=== PATIENT | female | born 1945 | race Caucasian/White ===

== ENCOUNTER → 2018-01-10 | Outpatient (CLI) | payer MEDICARE, OTHER ==
[~2018-01-10] MED LIST: DICL75TA PO; DULO1CAP2 PO; GABA600T PO; LEVO25TA4 PO; METF500T PO; MULT-65 PO; RA BTAB PO; SITA1TAB2 PO; VITA2000 PO
[2018-01-10 10:05] LABS: PROTHROMBIN TIME - PATIENT 10.3 SEC (9.8-11.6)
[2018-01-10 10:06] LABS: AUTOMATED NEUTROPHIL # 5.4 TH/MM3 (1.8-7.7); BASOPHIL # 0.1 TH/MM3 (0-0.2); EOSINOPHIL # 0.3 TH/MM3 (0-0.4); EOSINOPHIL % 3.5 % (0.0-4.0); HEMATOCRIT 42.5 % (35.0-46.0); LYMPH % 17.6 % (9.0-44.0); LYMPHOCYTE # 1.3 TH/MM3 (1.0-4.8); MEAN CELL VOLUME 88.9 FL (80.0-100.0); MEAN CORPUSCULAR HEMOGLOBIN 29.3 PG (27.0-34.0); MEAN CORPUSCULAR HGB CONC 32.9 % (32.0-36.0); MEAN PLATELET VOLUME 8.2 FL (7.0-11.0); MONO % 6.8 % (0.0-8.0); MONOCYTE # 0.5 TH/MM3 (0-0.9); NEUT % 71.1 % (16.0-70.0); PLATELET COUNT 353 TH/MM3 (150-450); RED BLOOD COUNT 4.78 MIL/MM3 (4.00-5.30); RED CELL DISTRIBUTION WIDTH 13.9 % (11.6-17.2); WHITE BLOOD COUNT 7.6 TH/MM3 (4.0-11.0)
--- NOTE | 2018-01-10 10:19 | RADRPT ---
EXAM DATE: 01/10/2018 10:13 AM EDT AGE/SEX: 72 years / Female INDICATIONS: Evaluate for pneumonia, pneumothorax or communicable disease. Pre op hip replacement. CLINICAL DATA: This is the patient's initial encounter. Patient reports that signs and symptoms have been present for 1 day and indicates a pain score of 0/10. MEDICAL/SURGICAL HISTORY: Diabetes mellitus type II. None. COMPARISON: No prior exams available for comparison. FINDINGS: PA and lateral views of the chest demonstrate the lungs to be symmetrically aerated without evidence of mass, infiltrate or effusion. The cardiomediastinal contours are unremarkable. Osseous structures are intact. CONCLUSION: Negative examination. Electronically signed by: Josr Nazario MD 01/10/2018 10:17 AM EDT
[2018-01-10 10:20] LABS: ALBUMIN 4.2 GM/DL (3.4-5.0); AST (GOT) 21 U/L (15-37); BICARBONATE 24.4 MEQ/L (21.0-32.0); BLOOD UREA NITROGEN 24 MG/DL (7-18); CALCIUM 9.8 MG/DL (8.5-10.1); CHLORIDE 105 MEQ/L (98-107); GLOMERULAR FILTRATION RATE 44 ML/MIN (>89); GLUCOSE,FASTING 120 MG/DL (74-99); SODIUM (NA) 140 MEQ/L (136-145)
[2018-01-10 10:21] LABS: ALT (GPT) 48 U/L (10-53)
[2018-01-10 10:23] LABS: ALKALINE PHOSPHATASE 94 U/L (45-117); TOTAL BILIRUBIN ADULT 0.4 MG/DL (0.2-1.0); TOTAL PROTEIN 7.5 GM/DL (6.4-8.2)
[2018-01-10 10:26] LABS: BILIRUBIN, URINE NEG (NEG); BLOOD, URINE NEG (NEG); GLUCOSE,URINE NEG (NEG); HYALINE CAST, URINE 10 /lpf (RARE); KETONE, URINE NEG (NEG); MUCUS URINE FEW /lpf (OCC); NITRITE,URINE NEG (NEG); PH, URINE 5.5 (5.0-8.5); RENAL EPITHELIAL CELLS <1 /hpf; SQUAMOUS EPITHELIAL CELL URINE 2 /hpf (0-5); TRANSITIONAL EPI CELLS, URINE 3 /hpf; URINE COLOR YELLOW (YELLW/STRAW); URINE LEUKOCYTE ESTERASE LARGE (NEG); WHITE BLOOD CELL CLUMPS OCC
[2018-01-10 10:27] LABS: BACTERIA, URINE OCC /hpf
[2018-01-10 10:40] LABS: WESTERGREN SEDIMENTATION RATE 9 mm/hr (0-30)
--- NOTE | 2018-01-10 15:23 | EKG ---
Date Performed: 01/10/2018 Time Performed: 09:23:12 PTAGE: 72 years EKG: Sinus rhythm LOW QRS VOLTAGE IN PRECORDIAL LEADS BORDERLINE ECG NO PREVIOUS TRACING DOCTOR: Carroll Wright Interpretating Date/Time 01/10/2018 15:22:14
== END ==
LOC: CPRE 09:52
PROVIDERS: ATTEND Orthopaedic Surgery Sports Medicine
DX: Z01.810 Encounter for preprocedural cardiovascular examination (principal); Z01.811 Encounter for preprocedural respiratory examination; Z01.812 Encounter for preprocedural laboratory examination; Z01.818 Encounter for other preprocedural examination; M16.12 Unilateral primary osteoarthritis, left hip; M25.50 Pain in unspecified joint; R82.99 Other abnormal findings in urine; R94.31 Abnormal electrocardiogram [ECG] [EKG]
CPT/HCPCS: 36415; 71046; 80053; 81001; 85025; 85610; 85652; 85730; 87086; 93005

== ENCOUNTER 2018-01-27 05:19 | Inpatient (IN) | payer MEDICARE, OTHER ==
[~2018-01-27] VITALS: Ht 170.2 cm; Wt 89.0 kg
[2018-01-27] MEDS ORDERED: METOPROLOL TARTRATE 25 MG TAB PO PRN (06:00)
[2018-01-27] MEDS ORDERED: CHLORHEXIDINE GLUCONATE 4% SOLN 120 ML BTL TOPICAL SCH (06:00)
[2018-01-27] MEDS ORDERED: CHLORHEXIDINE GLUCONATE 2 % 1 PACK (2 CLOTHS) TOPICAL PRN (06:00)
[2018-01-27] MEDS ORDERED: POVIDONE IODINE 7.5% SCRUB 118 ML BOTTLE TOPICAL SCH (06:00)
[2018-01-27] MEDS ORDERED: ceFAZolin 2 GM PREMIX 50 ML IV SCH (06:00)
[2018-01-27] MEDS ORDERED: SODIUM CHLORID 0.9% 500 ML IV PRN (06:00)
[2018-01-27] MEDS ORDERED: TRANEXAMIC ACID IV SCH (06:00)
[2018-01-27] MEDS ORDERED: VANCOMYCIN 1 GM/200 ML INJ 200 ML IV SCH (06:00)
[2018-01-27] MEDS ORDERED: POVIDONE IODINE 5% (ANTISEPSIS KIT) 4 APPLICATIONS EACH NARE PRN (06:00)
[2018-01-27] MEDS ORDERED: EXPAREL PERI-ARTICULAR INJECTION (TOTAL VOL. 60 ML) P-ARTICULR SCH ×2 (06:00)
[2018-01-27] MEDS ORDERED: TRANEXAMIC PERI-ARTICULAR 3,000 MG/NS 100 ML P-ARTICULR SCH ×2 (06:00)
[2018-01-27] MEDS ORDERED: DEXAMETHASONE SOD PHOS 20 MG/5 ML VIAL IV PRN (06:00)
[2018-01-27] MEDS ORDERED: SODIUM CHLORIDE 0.9% IV SCH (06:00)
[2018-01-27] MEDS ORDERED: LACTATED RINGER'S 1000 ML IV PRN (06:00)
[2018-01-27] MEDS ORDERED: GENTAMICIN SULFATE 80 MG/2 ML VIAL ONE (06:15)
[2018-01-27] MEDS ORDERED: FAMOTIDINE 20 MG/2 ML VIAL ONE (06:20)
[2018-01-27] MEDS ORDERED: MIDAZOLAM HCL 2 MG/2 ML VIAL ONE (06:20)
[2018-01-27] MEDS ORDERED: ACETAMINOPHEN 1000 MG/100 ML 100 ML IV ONE (06:20)
[2018-01-27] MEDS ORDERED: HYDR-3288 PO (06:36)
[2018-01-27] MEDS ORDERED: ASPI81CH6 CHEW (06:36)
[2018-01-27] MEDS ORDERED: Post-op Orders (for Pharmacy) XX ONE (06:45)
[2018-01-27] MEDS ORDERED: NALOXONE HCL 0.4 MG/ML AMP IV PUSH PRN (06:45)
[2018-01-27] MEDS ORDERED: ONDANSETRON HCL 4 MG/2 ML VIAL IVP PRN (06:45)
[2018-01-27] MEDS ORDERED: diphenhydrAMINE HCL 50 MG/ML VIAL IV PUSH PRN (06:45)
[2018-01-27] MEDS ORDERED: ZOLPIDEM TARTRATE 5 MG TAB PO PRN (06:45)
[2018-01-27] MEDS ORDERED: MORPHINE SULFATE 4 MG/ML INJ IV PUSH PRN (06:45)
[2018-01-27] MEDS ORDERED: TRANEXAMIC ACID INJ 1,000 MG/10 ML AMP ONE (06:49)
[2018-01-27] MEDS ORDERED: *morphine SULFATE 4 MG/ML PERIprocedure ONLY ONE ×3 (08:54→09:08)
[2018-01-27] MEDS: LEVOTHYROXINE SODIUM 25 MCG TAB PO SCH (09:00)
[2018-01-27] MEDS: DULoxetine HCl DR 30 MG CAP PO SCH (09:00)
[2018-01-27] MEDS: GABAPENTIN 300 MG CAP PO SCH ×3 (09:00→18:05)
[2018-01-27] MEDS: SODIUM CHLOR 0.9% 1000 ML INJ 1,000 ML IV SCH ×2 (09:01→16:27)
--- NOTE | 2018-01-27 09:02 | MP ---
cc: Go Ochoa MD DATE OF OPERATION: 01/27/2018 PREOPERATIVE DIAGNOSIS: Left hip osteoarthritis. POSTOPERATIVE DIAGNOSIS: Left hip osteoarthritis. PROCEDURE PERFORMED: Left total hip arthroplasty. SURGEON: Go Ochoa MD INTERNAL CONTROLS MANAGER: STARLA Salomon ANESTHESIA: General. ESTIMATED BLOOD LOSS: 200 mL. COMPLICATIONS: None. IMPLANTS USED: DePuy Corail size 13 press-fit standard offset femoral stem, size 52 solid Willernie Gription cup, 36 mm ceramic head, +1.5 neck. JUSTIFICATION: This patient is a 72-year-old female with history of severe osteoarthritis involving the left hip. She has severe disabling pain with standing, walking, ambulation and weight-bearing activities, and severe pain at rest. She has failed greater than 3 months of nonoperative conservative treatment to include medication therapy, injections, ambulatory assistive aids, home exercise program, activity modification. The patient is not overweight. X-ray of the left hip reveal severe osteoarthritis with joint space narrowing, subchondral sclerosis, subchondral cyst, osteophyte formation with subluxation. The patient was counseled as to the risks, benefits and alternatives to a total hip arthroplasty. The risks were discussed, which include, but are not limited to anesthesia, bleeding, infection, damage to nerves and blood vessels, pain, stiffness, fracture, dislocation, leg length discrepancy, blood clots, pulmonary embolism, even . The patient's pain is severe. She favored the benefits over the risks, she did wish to proceed with surgery. PROCEDURE IN DETAIL: Written consent was obtained. The patient was identified by name, taken to the operating room, placed supine on the operating table. General anesthesia was administered to the patient, as well as 2 grams of IV Ancef and 1 gram of IV vancomycin. I put the patient on the [place] table. The left and right feet were placed in the padded traction boots. All bony prominences and pressure points were well padded. The left hip and left lower extremity prepped and draped using isopropyl alcohol, Hibiclens solution and ChloraPrep solution. After a timeout was performed, a longitudinal incision was made over the anterolateral aspect of the left hip. The fascial layer was incised. Dissection was carried over the tensor fascia linda, beneath the rectus femoris to allow exposure of the anterior hip capsule. A capsulotomy incision was performed. An oscillating saw was used to perform a femoral neck cut. The osteoarthritic femoral head and neck component was removed. A 10 blade scalpel was used to excise the labrum. Sequential reaming began at size 43 and was carried through to a size 52. Subsequently, a solid Willernie 52 cup was then implanted in approximately 45 degrees of abduction and 10 degrees of anteversion. There was good purchase and fixation after insertion of the cup. A screw hole eliminator was placed, followed by the neutral liner. The liner was impacted in place and tested for stability. Attention was turned to the femur where the leg was externally rotated, extended and abducted. The capsule was released off the undersurface of the greater trochanter to allow for elevation and lateralization of the femur. A box cutting osteotome was used to gain entrance into the intramedullary canal of femur. This was followed by canal finder and sequential broaching up to size 13. A calcar planer was used to plane the calcar. Trial head and neck combinations were evaluated and final components implanted. With the current components, the leg achieve external rotation to 70 degrees and extension all the way down to the ground without evidence of anterior instability or impingement. Fluoroscopic imaging showed appropriate implantation of components. The soft tissue tension felt appropriate. surgical wound was thoroughly irrigated with sterile saline, pulse lavage antibiotic impregnated solution. The fascial layer was closed with #1 Vicryl suture, subcutaneous layer with 2-0 Vicryl suture. Skin was closed with Dermabond. Sterile dressing applied. The patient tolerated the procedure with no intraoperative complications noted. Alexandre Real PA-C, presence during the entire procedure to include patient positioning and the procedure itself. The medical necessity of a physician ward assistant was indicated in this case due to the complexity of the procedure. He assisted with appropriate manipulation of the leg and also retraction of muscle, tendon, bone, neurovascular structures. He assisted with preparation of bone and also implantation of the prosthetic replacement. Go Ochoa MD JWTamar/LAURA , 08:30 AM , 09:00 AM
[2018-01-27] MEDS ORDERED: DO NOT ADM ANY ANTICOAGULANT DRUGS PRN (09:15)
[2018-01-27] MEDS ORDERED: HYDROmorphone HCL PF 2 MG/ML VIAL ONE (09:16)
[2018-01-27] MEDS: metFORMIN HCL 500 MG TAB PO SCH ×3 (09:30→18:05)
--- NOTE | 2018-01-27 09:54 | RADRPT ---
EXAM DATE: 01/27/2018 9:48 AM EDT AGE/SEX: 72 years / Female INDICATIONS: Post op left hip. CLINICAL DATA: This is the patient's initial encounter. Patient reports that signs and symptoms have been present for 1 day and indicates a pain score of Nonresponsive. MEDICAL/SURGICAL HISTORY: None. None. COMPARISON: No prior exams available for comparison. FINDINGS: There is a left hip arthroplasty in place. Femoral component is well positioned. There is grossly karina tomic alignment. Osseous structures are intact without acute bony fracture. Degenerative changes are noted about the right hip. Postsurgical soft tissue changes are noted in the left hip. CONCLUSION: 1. Well-positioned left hip arthroplasty in grossly anatomic alignment. Electronically signed by: Trever Bravo MD 01/27/2018 9:53 AM EDT
[2018-01-27] MEDS ORDERED: LACTATED RINGER'S 1000 ML INJ 1,000 ML IV ONE (12:00)
[2018-01-27] MEDS ORDERED: ePHEDrine/NS 25 MG/5 ML SYRINGE IV ONE (12:00)
[2018-01-27] MEDS ORDERED: ONDANSETRON HCL 4 MG/2 ML VIAL IV PUSH ONE (12:00)
[2018-01-27] MEDS ORDERED: LIDOCAINE HCL 1% PF 5 ML SYRINGE OTHER ONE (12:00)
[2018-01-27] MEDS ORDERED: GLYCOPYRROLATE 1 MG/5 ML SYRINGE IV PUSH ONE (12:00)
[2018-01-27] MEDS ORDERED: ROCURONIUM INJ 50 MG/5 ML SYRINGE IV PUSH ONE (12:00)
[2018-01-27] MEDS ORDERED: PROPOFOL 200 MG/20 ML AMP IV ONE (12:00)
[2018-01-27] MEDS ORDERED: NEOSTIGMINE 5 MG/5 ML SYRINGE IV PUSH ONE (12:00)
--- NOTE | 2018-01-27 12:29 | RADRPT ---
EXAM DATE: 01/27/2018 11:17 AM EDT AGE/SEX: 72 years / Female INDICATIONS: Left total hip replacement. CLINICAL DATA: This is the patient's initial encounter. Patient reports that signs and symptoms have been present for 1 day and indicates a pain score of Nonresponsive. MEDICAL/SURGICAL HISTORY: Non-responsive. Non-responsive. COMPARISON: No prior exams available for comparison. FINDINGS: Postoperative left total hip replacement. 3 views obtained and 8. On the AP projection revealed pratibha l alignment. CONCLUSION: No lateral projection but normal alignment on AP projection. Electronically signed by: Jamal Field MD 01/27/2018 12:28 PM EDT
[2018-01-27 14:00] VITALS: BP 169/85; PULSE 115; RESP 17; TEMP 97.2; O2SAT 95
[2018-01-27] MEDS: ACETAMINOPHEN/HYDROcodone 325 MG/7.5 MG TAB PO PRN ×3 (14:18→21:48)
[2018-01-27] MEDS ORDERED: GLUCAGON 1 MG/ML VIAL OTHER PRN (14:45)
[2018-01-27] MEDS ORDERED: cloNIDine HCL 0.1 MG TAB PO PRN (14:45)
[2018-01-27] MEDS ORDERED: DEXTROSE 50% IN WATER 50 ML VIAL(D50) IV PUSH PRN (14:45)
--- NOTE | 2018-01-27 14:55 | PD.CONS ---
[facility] By DR RAMSEY VARGAS Reason for Consult MEDICAL MANAGEMENT Primary Care Physician Chapincito Cruz MD Diagnoses: (1) Diabetes (2) Nausea after anesthesia (3) Hypothyroidism (4) Depression (5) Peripheral neuropathy History of Present Illness Patient is a 72-year-old female who underwent left total hip arthroplasty due to severe osteoarthritis of her left hip. She has failed multiple medical modalities prior to coming to the hospital, And therefore has undergone surgery. Patient has a past medical history significant for diabetes and diabetic neuropathy as well as hypothyroidism and depression and chronic pain. We have been asked to help regarding medical management We will get a.m. labs and will follow throughout the admission We will make sure he is Accu-Cheks before meals and at bedtime and sliding scale coverage as well as medications for any breakthrough hypertension and nausea as needed Review of Systems Constitutional: DENIES: Diaphoretic episodes, Fatigue, Fever, Weight gain, Weight loss, Chills, Dizziness, Change in appetite, Night Sweats Endocrine: DENIES: Abnorml menstrual pattern, Heat/cold intolerance, Polydipsia , Polyuria, Polyphagia Eyes: DENIES: Blurred vision, Diplopia, Eye inflammation, Eye pain, Vision loss , Photosensitivity, Double Vision Ears, nose, mouth, throat: DENIES: Tinnitus, Hearing loss, Vertigo, Nasal discharge, Oral lesions, Throat pain, Hoarseness, Ear Pain, Running Nose, Epistaxis, Sinus Pain, Toothache, Odynophagia Respiratory: DENIES: Apneas, Cough, Snoring, Wheezing, Hemoptysis, Sputum production, Shortness of breath Cardiovascular: DENIES: Chest pain, Palpitations, Syncope, Dyspnea on Exertion , PND, Lower Extremity Edema, Orthopnea, Claudication Gastrointestinal: COMPLAINS OF: Nausea, Vomiting, DENIES: Abdominal pain, Black stools, Bloody stools, Constipation, Diarrhea, Difficulty Swallowing, Anorexia Genitourinary: DENIES: Abnormal vaginal bleeding, Dysmenorrhea, Dyspareunia, Sexual dysfunction, Urinary frequency, Urinary incontinence, Urgency, Hematuria , Dysuria, Nocturia Musculoskeletal: DENIES: Joint pain, Muscle aches, Stiffness, Joint Swelling, Back pain, Neck pain Integumentary: DENIES: Abnormal pigmentation, Pruritus, Rash, Nail changes, Breast masses, Breast skin changes, Nipple discharge Hematologic/lymphatic: DENIES: Bruising, Lymphadenopathy Immunologic/allergic: DENIES: Eczema, Urticaria Neurologic: COMPLAINS OF: Abnormal gait, Poor Balance, DENIES: Headache, Localized weakness, Paresthesias, Seizures, Tremor Psychiatric: DENIES: Anxiety, Confusion, Mood changes, Depression, Hallucinations, Agitation, Suicidal Ideation, Homicidal Ideation, Delusions Except as stated in HPI: all other systems reviewed are Neg Past Family Social History Allergies: Coded Allergies: tramadol (Verified Allergy, Severe, VIOLENTLY ILL, CHILLS, FEVER, VOMITING , 01/27/18) Past Medical History Hypothyroidism neuropathy bilateral feet Left hip pain history of bilateral knee pain Osteoarthritis Bilateral knee replacements Diabetes mellitus type 2 Past Surgical History Cataracts bilaterally Tonsillectomy Bilateral total knee replacements Reported Medications Reported Meds & Active Scripts Active Aspirin Low Dose (Aspirin) 81 Mg Chew 81 Mg CHEW BID 30 Days [place] (Hydrocodone-Acetaminophen) 7.5-325 mg Tab 1-2 Tab PO Q6H PRN Reported Vitamin D3 (Cholecalciferol) 2,000 Unit Cap 2,000 Units PO DAILY B Complex (Vitamin B Complex) 1 Each Tablet 1 Tab PO DAILY Multi-Vitamin Daily (Multiple Vitamin) 1 Tab Tab 1 Tab PO DAILY Levothyroxine (Levothyroxine Sodium) 25 Mcg Tab 25 Mcg PO DAILY Diclofenac Sodium DR (Diclofenac Sodium) 75 Mg Tabdr 75 Mg PO BID Duloxetine DR (Duloxetine HCl) 30 Mg Capdr 30 Mg PO DAILY Januvia (Sitagliptin Phosphate) 100 Mg Tab 100 Mg PO DAILY Gabapentin 600 Mg Tab 600 Mg PO TID Metformin (Metformin HCl) 500 Mg Tab 500 Mg PO TIDPC Active Ordered Medications Current Medications Dexamethasone Sodium Phosphate (Decadron Inj) 10 mg STOCK REPAIRER PRN IV PRE-OP IN OR HOLDING Last administered on 01/27/18at 06:20; Start 01/27/18 at 06:00; Stop 01/27/18 at 22:00 Povidone Iodine (Betadine 7.5% Scrub) 1 applic ONCE TOPICAL Last administered on 01/27/18at 06:10; Start 01/27/18 at 06:00; Stop 01/30/18 at 05:59 Chlorhexidine Gluconate (Hibiclens 4% Top Soln) 1 applic ONCE TOPICAL ; Start at 06:00; Stop 01/30/18 at 05:59 Cefazolin Sodium/ Dextrose 50 ml @ 100 mls/hr STOCK REPAIRER IV Last administered on 01/27/18at 06:25; Start 01/27/18 at 06:00; Stop 01/30/18 at 05:59 Vancomycin/Sodium Chloride 200 ml @ 200 mls/hr STOCK REPAIRER IV Last administered on 01/27/18at 06:44; Start 01/27/18 at 06:00; Stop 01/30/18 at 05:59 Tranexamic Acid 1340 mg/Sodium Chloride 113.4 ml @ 200 mls/hr ONCE IV Last administered on 01/27/18at 07:01; Start 01/27/18 at 06:00; Stop 01/27/18 at 13:00 ; Status DC Bupivacaine Liposome 20 ml/ Sodium Chloride 60 ml @ 120 mls/hr ONCE P-ARTICULR Last administered on 01/27/18at 08:20; Start 01/27/18 at 06:00; Stop 01/27/18 at 14:00; Status DC Tranexamic Acid 3000 mg/Sodium Chloride 130 ml @ 260 mls/hr ONCE P-ARTICULR Last administered on 01/27/18at 07:50; Start 01/27/18 at 06:00; Stop 01/27/18 at 14:00; Status DC Lactated Ringer's 1,000 ml @ 30 mls/hr Q24H PRN IV SEE LABEL COMMENTS Last administered on 01/27/18at 06:00; Start 01/27/18 at 06:00; Stop 01/30/18 at 05:59 Sodium Chloride 500 ml @ 30 mls/hr [id number] PRN IV SEE LABEL COMMENTS; Start at 06:00; Stop 01/30/18 at 05:59 Metoprolol Tartrate (Lopressor) 25 mg STOCK REPAIRER PRN PO SEE LABEL COMMENTS; Start 01/27/18 at 06:00; Stop 01/30/18 at 05:59 Povidone Iodine (Betadine 5% Antisepsis Kit) 1 applic STOCK REPAIRER PRN EACH NARE SEE LABEL COMMENTS Last administered on 01/27/18at 06:15; Start 01/27/18 at 06:00 ; Stop 01/30/18 at 05:59 Chlorhexidine Gluconate (Chlorhexidine 2% Cloth) 3 pack STOCK REPAIRER PRN TOPICAL SEE LABEL COMMENTS Last administered on 01/27/18at 05:40; Start 01/27/18 at 06:00 ; Stop 01/30/18 at 05:59 Gentamicin Sulfate (Gentamicin Inj) 240 mg STK-MED ONCE .ROUTE Last administered on 01/27/18at 07:31; Start 01/27/18 at 06:15; Stop 01/27/18 at 06:16 ; Status DC Acetaminophen 100 ml @ As Directed STK-MED ONCE IV ; Start 01/27/18 at 06:20; Stop 01/27/18 at 06:21; Status DC Midazolam HCl (Versed Inj) 2 mg STK-MED ONCE .ROUTE ; Start 01/27/18 at 06:20; Stop 01/27/18 at 06:21; Status DC Fentanyl Citrate (fentaNYL INJ) 300 mcg STK-MED ONCE .ROUTE ; Start 01/27/18 at 06:20; Stop 01/27/18 at 06:21; Status DC Famotidine (Pepcid Inj) 20 mg STK-MED ONCE .ROUTE ; Start 01/27/18 at 06:20; Stop 01/27/18 at 06:21; Status DC Duloxetine HCl (Cymbalta Dr) 30 mg DAILY PO ; Start 01/27/18 at 09:00 Gabapentin (Neurontin) 600 mg TID PO Last administered on 01/27/18at 14:18; Start 01/27/18 at 09:00 Levothyroxine Sodium (Synthroid) 25 mcg DAILY@0600 PO ; Start 01/27/18 at 09:00 Metformin HCl (Glucophage) 500 mg TIDPC PO Last administered on 01/27/18at 14:18 ; Start 01/27/18 at 09:30 Sitagliptin Phosphate (Januvia) 100 mg DAILY PO ; Start 01/27/18 at 09:00 Sodium Chloride 1,000 ml @ 100 mls/hr Q10H IV Last administered on 01/27/18at 09:01; Start 01/27/18 at 07:00 Cefazolin Sodium 1000 mg/Sodium Chloride 100 ml @ 200 mls/hr Q6H IV Last administered on 01/27/18at 13:00; Start 01/27/18 at 13:00; Stop 01/28/18 at 01:29 Miscellaneous Information (Misc Post-op Orders (for Pharmacy)) STAT ONCE XX ; Start 01/27/18 at 06:45; Stop 01/27/18 at 07:18; Status DC Enoxaparin Sodium (Lovenox Inj) 40 mg Q24H SQ ; Start 01/28/18 at 08:00; Stop at 08:01 Morphine Sulfate (Morphine Inj) 3 mg Q3H PRN IV PUSH Pain >7 when off VALVE LAPPER; Start 01/27/18 at 06:45 Acetaminophen/ Hydrocodone Bitart ([place] 7.5-325 Mg) 1 tab Q4H PRN PO PAIN LESS THAN 5 ON SCALE Last administered on 01/27/18at 14:18; Start 01/27/18 at 06: 45 Acetaminophen/ Hydrocodone Bitart ([place] 7.5-325 Mg) 2 tab Q4H PRN PO PAIN SCALE 5 TO 10; Start 01/27/18 at 06:45 Multivitamins/ Minerals Therapeutic (Theragran M Tab) 1 tab BID PO ; Start 01/28 at 21:00; Stop 03/29/18 at 20:59 Ondansetron HCl (Zofran Inj) 4 mg Q6H PRN IVP NAUSEA OR VOMITING Last administered on 01/27/18at 14:26; Start 01/27/18 at 06:45 Docusate Sodium (Colace) 100 mg BID PO ; Start 01/28/18 at 21:00 Zolpidem Tartrate (Ambien) 5 mg HS PRN PO SLEEP; Start 01/27/18 at 06:45 Naloxone HCl (Narcan Inj) 0.4 mg UNSCH PRN IV PUSH RESPIRATORY RATE LESS THAN 10; Start 01/27/18 at 06:45 Diphenhydramine HCl (Benadryl Inj) 25 mg Q6H PRN IV PUSH ITCHING; Start at 06:45 Tranexamic Acid (Cyklokapron Inj) 1,000 mg STK-MED ONCE .ROUTE ; Start 01/27/18 at 06:49; Stop 01/27/18 at 06:50; Status DC Morphine Sulfate (*morphine INJ PERIprocedure ONLY) 4 mg STK-MED ONCE .ROUTE Last administered on 01/27/18at 08:56; Start 01/27/18 at 08:54; Stop 01/27/18 at 08:55; Status DC Miscellaneous Information ([facility] ALL NURSING DEPARTME... UNSCH PRN .XX SEE LABEL COMMENTS; Start 01/27/18 at 09:15; Stop 01/28/18 at 09: 14 Morphine Sulfate (*morphine INJ PERIprocedure ONLY) 4 mg STK-MED ONCE .ROUTE Last administered on 01/27/18at 09:03; Start 01/27/18 at 09:01; Stop 01/27/18 at 09:02; Status DC Morphine Sulfate (*morphine INJ PERIprocedure ONLY) 4 mg STK-MED ONCE .ROUTE Last administered on 01/27/18at 09:08; Start 01/27/18 at 09:08; Stop 01/27/18 at 09:09; Status DC Hydromorphone HCl (Dilaudid Pf Inj) 2 mg STK-MED ONCE .ROUTE Last administered on 01/27/18at 09:18; Start 01/27/18 at 09:16; Stop 01/27/18 at 09:17; Status DC Family History Arthritis and possible diabetes Social History Denies any tobacco Denies any illicits Occasional alcohol Physical Exam Vital Signs Vital Signs Date Time Temp Pulse Resp B/P (MAP) Pulse Ox O2 Delivery O2 Flow Rate FiO2 01/27/18 11:00 84 14 131/61 (84) 95 Nasal Cannula 2 01/27/18 10:00 83 14 139/65 (89) 96 Nasal Cannula 2 01/27/18 09:45 70 14 126/56 (79) 95 Nasal Cannula 2 01/27/18 09:30 75 14 142/67 (92) 95 Nasal Cannula 2 01/27/18 09:15 76 19 137/64 (88) 97 Nasal Cannula 2 01/27/18 09:00 80 17 129/60 (83) 97 Nasal Cannula 2 01/27/18 08:50 Nasal Cannula 2 01/27/18 08:46 98.3 104 23 159/74 (102) 98 Simple Mask 6 01/27/18 06:09 97.9 68 18 128/63 (84) 96 Physical Exam GENERAL: This is a well-nourished, well-developed patient, in no apparent distress. SKIN: No rashes, ecchymoses or lesions. Cool and dry. HEAD: Atraumatic. Normocephalic. No temporal or scalp tenderness. EYES: Pupils equal round and reactive. Extraocular motions intact. No scleral icterus. No injection or drainage. ENT: Nose without bleeding, purulent drainage or septal hematoma. Throat without erythema, tonsillar hypertrophy or exudate. Uvula midline. Airway patent. NECK: Trachea midline. No JVD or lymphadenopathy. Supple, nontender, no meningeal signs. CARDIOVASCULAR: Regular rate and rhythm without murmurs, gallops, or rubs. S1- S2 no S3 or S4 no heave or thrill or rub or gallop RESPIRATORY: Clear to auscultation. Breath sounds equal bilaterally. No wheezes , rales, or rhonchi. GASTROINTESTINAL: Abdomen soft, non-tender, nondistended. No hepato-splenomegaly , or palpable masses. No guarding. Obese MUSCULOSKELETAL: Extremities without clubbing, cyanosis, or edema. No joint tenderness, effusion, or edema noted. No calf tenderness. Negative Homans sign bilaterally. Left hip is dressed NEUROLOGICAL: Awake and alert. Cranial nerves II through XII intact. Motor and sensory grossly within normal limits. 4 out of 5 muscle strength in all muscle groups. Normal speech. Insight and judgment is good Mood and behavior is appropriate Imaging Last Impressions Hip and Pelvis X-Ray 01/27/18 0633 Signed Impressions: CONCLUSION: 1. Well-positioned left hip arthroplasty in grossly anatomic alignment. Hip X-Ray 01/27/18 0000 Signed Impressions: CONCLUSION: No lateral projection but normal alignment on AP projection. Assessment and Plan Problem List: (1) Peripheral neuropathy ICD Code: G62.9 - Polyneuropathy, unspecified (2) Depression ICD Code: F32.9 - Major depressive disorder, single episode, unspecified (3) Nausea after anesthesia ICD Code: T88.59XA - Other complications of anesthesia, initial encounter; R11.0 - Nausea (4) Hypothyroidism ICD Code: E03.9 - Hypothyroidism, unspecified (5) Diabetes ICD Code: E11.9 - Type 2 diabetes mellitus without complications Assessment and Plan Status post left total hip arthroplasty due to severe osteoarthritis -Pain control per orthopedic -Physical therapy and Occupational Therapy Diabetes mellitus -Home medications Accu-Cheks before meals and at bedtime with sliding scale coverage Diabetic diet Nausea and vomiting continue on antiemetics as needed Hypothyroidism continue on Synthroid Diabetic neuropathy continue on home medications Depression resume home medication DVT prophylaxis per orthopedic A.m. labs Sliding scale coverage with Accu-Cheks before meals and at bedtime Discussed with patient and RN and the Code Status Full code Discussed Condition With Discussed with patient and RN and Steve Hastings DO Jan 27, 2018 14:55
--- NOTE | 2018-01-27 15:23 | HHI.DCPOC ---
Discharge Care Plan Diagnosis: (1) Primary localized osteoarthrosis, pelvic region and thigh Your Health Problems Are: Difficulty with ADL Goals to Promote Your Health * To prevent worsening of your condition and complications * To maintain your health at the optimal level Directions to Meet Your Goals Take your medications as prescribed Follow your dietary instruction Follow activity as directed Keep your appointments as scheduled Take your immunizations and boosters as scheduled If your symptoms worsen call your PCP, if no PCP go to Urgent Care Center or Emergency Room Smoking is Dangerous to Your Health. Avoid second hand smoke Call the 24-hour hour crisis hotline for domestic abuse at [facility] Jan 27, 2018 15:23
--- NOTE | 2018-01-27 15:25 | HHI.FF ---
Face to Face Verification Diagnosis: (1) Primary localized osteoarthrosis, pelvic region and thigh Physical Therapy Gait training, Safety evaluation, Transfer training, bed to chair Hip: Total hip, Protocol: Left Left LE Weight Bearing: WB as tolerated Nursing RN: 3 days/week x 2 weeks Nursing: Dressing changes Dressing Changes: Daily dressing change I have seen patient Natali Sandy on 01/27/18. My clinical findings support the need for the requested home health care services because: Limited ability to care for self High risk of falls I certify that my clinical findings support that this patient is homebound because: Post-op weakness Unsteady gait/balance [facility] Jan 27, 2018 15:25
[2018-01-27] MEDS: INSULIN ASPART SUPPLEMENTAL SCALE SQ SCH ×2 (16:27→20:56)
[2018-01-27 16:46] VITALS: BP 130/66; PULSE 82; RESP 18; TEMP 97.8; O2SAT 94
[2018-01-27 20:00] VITALS: BP 126/64; PULSE 96; RESP 17; TEMP 98; O2SAT 92
[2018-01-27 21:10] VITALS: O2SAT 94
[2018-01-28] VITALS (8 sets, daily range): BP systolic 111–116; BP diastolic 54–58; PULSE 76–93; RESP 16–18; TEMP 97.2–98.8; O2SAT 91–99
[2018-01-28] MEDS: ACETAMINOPHEN/HYDROcodone 325 MG/7.5 MG TAB PO PRN ×5 (02:33→20:37)
[2018-01-28] MEDS: SODIUM CHLOR 0.9% 1000 ML INJ 1,000 ML IV SCH ×3 (02:33→20:37)
[2018-01-28] MEDS: LEVOTHYROXINE SODIUM 25 MCG TAB PO SCH (05:32)
[2018-01-28] MEDS: INSULIN ASPART SUPPLEMENTAL SCALE SQ SCH ×4 (07:52→20:46)
[2018-01-28] MEDS: DULoxetine HCl DR 30 MG CAP PO SCH (07:57)
[2018-01-28] MEDS: GABAPENTIN 300 MG CAP PO SCH ×3 (07:57→17:09)
--- NOTE | 2018-01-28 07:57 | PD.ORT.PN ---
Subjective Post Op Day #: 1 Subjective Remarks pain tolerable. Objective Vitals Vital Signs Date Time Temp Pulse Resp B/P (MAP) Pulse Ox O2 Delivery O2 Flow Rate FiO2 01/28/18 07:35 Room Air 01/28/18 04:00 97.2 76 17 112/56 (74) 92 01/28/18 01:01 94 Room Air 01/28/18 00:00 98.8 83 17 115/56 (75) 91 01/27/18 21:10 94 21 01/27/18 20:00 98.0 96 17 126/64 (84) 92 01/27/18 16:46 97.8 82 18 130/66 (87) 94 01/27/18 14:00 97.2 115 17 169/85 (113) 95 01/27/18 13:30 97.8 93 16 152/71 (98) 97 Nasal Cannula 2 01/27/18 13:00 86 14 121/58 (79) 97 Nasal Cannula 2 01/27/18 12:00 85 14 130/58 (82) 96 Nasal Cannula 2 01/27/18 11:00 84 14 131/61 (84) 95 Nasal Cannula 2 01/27/18 10:00 83 14 139/65 (89) 96 Nasal Cannula 2 01/27/18 09:45 70 14 126/56 (79) 95 Nasal Cannula 2 01/27/18 09:30 75 14 142/67 (92) 95 Nasal Cannula 2 01/27/18 09:15 76 19 137/64 (88) 97 Nasal Cannula 2 01/27/18 09:00 80 17 129/60 (83) 97 Nasal Cannula 2 01/27/18 08:50 Nasal Cannula 2 01/27/18 08:46 98.3 104 23 159/74 (102) 98 Simple Mask 6 I/O 01/27/18 01/27/18 01/27/18 01/28/18 01/28/18 01/28/18 07:00 15:00 23:00 07:00 15:00 23:00 Intake Total 2820.4 ml 750 ml 340 ml Output Total 200 ml Balance 2620.4 ml 750 ml 340 ml Intake Oral 75 ml 650 ml 240 ml IV Total 945.4 ml 100 ml 100 ml Other 1800 ml Output Estimated Blood Loss 200 ml # Voids 0 1 5 Objective Remarks in bed, nad dressing c/d/i neg angie nvi Assessment & Plan Ortho Post Op Day #: 1 Problem List: Assessment and Plan s/p R ALEXEY wbat ok to maintain dressing unless saturated lovenox, d/c on asa 81 d/c planning home with [facility] and pt f/up dr. gore 2 weeks [facility] Jan 28, 2018 07:57
[2018-01-28] MEDS: ENOXAPARIN SODIUM 40 MG/0.4 ML SYRINGE SQ SCH (07:58)
[2018-01-28] MEDS: metFORMIN HCL 500 MG TAB PO SCH ×3 (07:58→17:09)
[2018-01-28 09:12] LABS: BASOPHIL % 0.1 % (0.0-2.0); EOSINOPHIL % 0.1 % (0.0-4.0); HEMATOCRIT 33.1 % (35.0-46.0); LYMPH % 11.6 % (9.0-44.0); LYMPHOCYTE # 1.2 TH/MM3 (1.0-4.8); MEAN CELL VOLUME 88.2 FL (80.0-100.0); MEAN CORPUSCULAR HEMOGLOBIN 29.4 PG (27.0-34.0); MEAN CORPUSCULAR HGB CONC 33.3 % (32.0-36.0); MEAN PLATELET VOLUME 7.8 FL (7.0-11.0); NEUT % 78.2 % (16.0-70.0); PLATELET COUNT 318 TH/MM3 (150-450); RED BLOOD COUNT 3.75 MIL/MM3 (4.00-5.30); RED CELL DISTRIBUTION WIDTH 14.2 % (11.6-17.2); WHITE BLOOD COUNT 10.2 TH/MM3 (4.0-11.0)
[2018-01-28 10:48] LABS: ALBUMIN 3.4 GM/DL (3.4-5.0); AST (GOT) 12 U/L (15-37); BLOOD UREA NITROGEN 14 MG/DL (7-18); CALCIUM 9.1 MG/DL (8.5-10.1); CHLORIDE 107 MEQ/L (98-107); CREATININE 0.92 MG/DL (0.50-1.00); GLOMERULAR FILTRATION RATE 60 ML/MIN (>89); GLUCOSE,RANDOM 167 MG/DL (74-106); MAGNESIUM 1.8 MG/DL (1.5-2.5); SODIUM (NA) 141 MEQ/L (136-145)
[2018-01-28 10:58] LABS: ALKALINE PHOSPHATASE 64 U/L (45-117); ALT (GPT) 27 U/L (10-53); FREE T4 1.69 NG/DL (0.76-1.46); PHOSPHORUS 2.4 MG/DL (2.5-4.9); TOTAL BILIRUBIN ADULT 0.4 MG/DL (0.2-1.0); TOTAL PROTEIN 6.4 GM/DL (6.4-8.2)
[2018-01-28 13:47] LABS: HEMOGLOBIN A1C 6.6 % (4.3-6.0)
--- NOTE | 2018-01-28 15:05 | HHI.PR ---
Subjective Remarks Follow-up visit status post left total hip arthroplasty, DM, hypothyroidism, depression, diabetic neuropathy. Patient seen and examined today. Reports she is doing well. States she attended a class. Pain is well controlled. States she continues to have diabetic neuropathy but otherwise numbness and tingling the legs is chronic. Denies pain and discomfort. Denies SOB/ dyspnea. Denies chest pain, palpitations, headaches, dizziness. Denies fevers, chills, n/v/d. Denies dysuria. Objective Vitals Vital Signs Date Time Temp Pulse Resp B/P (MAP) Pulse Ox O2 Delivery O2 Flow Rate FiO2 01/28/18 12:19 98.6 85 18 111/57 (75) 98 01/28/18 08:57 93 21 01/28/18 08:00 98.2 87 17 115/58 (77) 99 01/28/18 07:35 Room Air 01/28/18 04:00 97.2 76 17 112/56 (74) 92 01/28/18 01:01 94 Room Air 01/28/18 00:00 98.8 83 17 115/56 (75) 91 01/27/18 21:10 94 21 01/27/18 20:00 98.0 96 17 126/64 (84) 92 01/27/18 16:46 97.8 82 18 130/66 (87) 94 I/O 01/27/18 01/27/18 01/27/18 01/28/18 01/28/18 01/28/18 06:59 14:59 22:59 06:59 14:59 22:59 Intake Total 2820.4 ml 750 ml 340 ml Output Total 200 ml Balance 2620.4 ml 750 ml 340 ml Intake Oral 75 ml 650 ml 240 ml IV Total 945.4 ml 100 ml 100 ml Other 1800 ml Output Estimated Blood Loss 200 ml # Voids 0 1 5 Result Diagram: 01/28/18 0812 01/28/18 0812 Imaging Last Impressions Hip and Pelvis X-Ray 01/27/18 0633 Signed Impressions: CONCLUSION: 1. Well-positioned left hip arthroplasty in grossly anatomic alignment. Hip X-Ray 01/27/18 0000 Signed Impressions: CONCLUSION: No lateral projection but normal alignment on AP projection. Objective Remarks GENERAL: This is a well-nourished, well-developed patient, in no apparent distress. SKIN: Warm and dry HEENT: Normocephalic. Pupils equal round and reactive. Nose without bleeding. Airway patent. NECK: Trachea midline. No JVD. Supple. CARDIOVASCULAR: Regular rate and rhythm without murmurs, gallops, or rubs. RESPIRATORY: Clear to auscultation. Breath sounds equal bilaterally. No wheezes , rales, or rhonchi. GASTROINTESTINAL: Abdomen soft, non-tender, nondistended. Bowel Sounds normoactive x4. MUSCULOSKELETAL: Extremities without clubbing, cyanosis. Left hip trace edema NEUROLOGICAL: Awake and alert. Oriented to time, place, person. No focal neuro deficit. Moves all extremities. Normal speech. Procedures Status post left hip arthroplasty A/P Problem List: (1) Peripheral neuropathy ICD Code: G62.9 - Polyneuropathy, unspecified (2) Depression ICD Code: F32.9 - Major depressive disorder, single episode, unspecified (3) Nausea after anesthesia ICD Code: T88.59XA - Other complications of anesthesia, initial encounter; R11.0 - Nausea (4) Hypothyroidism ICD Code: E03.9 - Hypothyroidism, unspecified (5) Diabetes ICD Code: E11.9 - Type 2 diabetes mellitus without complications Assessment and Plan Patient is a 72-year-old female who underwent left total hip arthroplasty due to severe osteoarthritis of her left hip. Status post left total hip arthroplasty due to severe osteoarthritis by Dr. Ochoa -Orthopedic following, weightbearing status per orthopedic surgery -Pain management with bowel -Physical therapy eval and treat Diabetes mellitus type 2, no long-term insulin use, diabetic neuropathy -Continue Januvia, insulin sliding scale -Monitor Accu-Cheks Neuropathy -Diabetic neuropathy -Gabapentin Hypothyroidism -Continue Synthroid Depression -Resume home medication duloxetine DVT prop Lovenox Discharge Planning Plan to [place] home when cleared by orthopedic surgeon Mik Townsend Jan 28, 2018 15:05
[2018-01-28] MEDS: DOCUSATE SODIUM 100 MG CAP PO SCH (20:36)
[2018-01-28] MEDS: MULTIVITAMINS/MINERALS THERAPEUTIC TAB PO SCH (20:36)
[2018-01-29 01:20] VITALS: BP 131/59; PULSE 85; RESP 16; TEMP 98.5; O2SAT 95
[2018-01-29 03:48] VITALS: BP 117/58; PULSE 89; RESP 16; TEMP 98.9; O2SAT 96
[2018-01-29] MEDS: ACETAMINOPHEN/HYDROcodone 325 MG/7.5 MG TAB PO PRN (05:46)
[2018-01-29] MEDS: LEVOTHYROXINE SODIUM 25 MCG TAB PO SCH (05:46)
[2018-01-29 08:00] VITALS: BP 170/89; PULSE 94; RESP 18; TEMP 97.7; O2SAT 96
[2018-01-29] MEDS: INSULIN ASPART SUPPLEMENTAL SCALE SQ SCH (08:00)
[2018-01-29 08:40] LABS: HEMATOCRIT 30.6 % (35.0-46.0); HEMOGLOBIN 10.2 GM/DL (11.6-15.3); MEAN CELL VOLUME 87.8 FL (80.0-100.0); MEAN CORPUSCULAR HEMOGLOBIN 29.4 PG (27.0-34.0); MEAN CORPUSCULAR HGB CONC 33.4 % (32.0-36.0); MEAN PLATELET VOLUME 7.6 FL (7.0-11.0); PLATELET COUNT 251 TH/MM3 (150-450); RED BLOOD COUNT 3.48 MIL/MM3 (4.00-5.30); RED CELL DISTRIBUTION WIDTH 14.1 % (11.6-17.2); WHITE BLOOD COUNT 9.1 TH/MM3 (4.0-11.0)
[2018-01-29] MEDS: MULTIVITAMINS/MINERALS THERAPEUTIC TAB PO SCH (08:51)
[2018-01-29] MEDS: DULoxetine HCl DR 30 MG CAP PO SCH (08:51)
[2018-01-29] MEDS: GABAPENTIN 300 MG CAP PO SCH (08:51)
[2018-01-29] MEDS: metFORMIN HCL 500 MG TAB PO SCH (08:51)
[2018-01-29] MEDS: DOCUSATE SODIUM 100 MG CAP PO SCH (08:51)
[2018-01-29] MEDS: ENOXAPARIN SODIUM 40 MG/0.4 ML SYRINGE SQ SCH (08:52)
[2018-01-29] MEDS: SODIUM CHLOR 0.9% 1000 ML INJ 1,000 ML IV SCH (09:00)
--- NOTE | 2018-01-29 09:37 | HHI.PR ---
Subjective Remarks Follow-up visit status post left total hip arthroplasty, DM, hypothyroidism, depression, diabetic neuropathy. Patient seen and examined today. Patient states she is doing well. Reports she has an episode of "fainting," in the toilet last night. States she called the nurse and had help her go to the bathroom. As she was sitting on the bathroom she told the nurse that she is not feeling good all of a sudden and then she did not know what happened. States that there were 6 nurses getting her back to bed but she does not remember. So far, she was up in a chair today without any difficulty, dizziness , chest pain, palpitation, loss of consciousness she is aware of. States that he was just a one-time episode in did not know what happened. States that she never had that episode before. Objective Vitals Vital Signs Date Time Temp Pulse Resp B/P (MAP) Pulse Ox O2 Delivery O2 Flow Rate FiO2 01/29/18 07:30 Room Air 01/29/18 03:48 98.9 89 16 117/58 (77) 96 01/29/18 01:20 Nasal Cannula 2.00 01/29/18 01:20 98.5 85 16 131/59 (83) 95 01/28/18 21:27 94 01/28/18 20:50 98.4 93 16 114/54 (74) 94 01/28/18 20:30 Room Air 01/28/18 16:09 98.6 93 17 116/57 (76) 94 01/28/18 12:19 98.6 85 18 111/57 (75) 98 I/O 01/28/18 01/28/18 01/28/18 01/29/18 01/29/18 01/29/18 07:00 15:00 23:00 07:00 15:00 23:00 Intake Total 340 ml 360 ml Balance 340 ml 360 ml Intake Oral 240 ml 360 ml IV Total 100 ml # Voids 5 2 # Bowel Movements 0 Result Diagram: 01/29/18 0722 01/28/18 0812 Imaging Last Impressions Hip and Pelvis X-Ray 01/27/18 0633 Signed Impressions: CONCLUSION: 1. Well-positioned left hip arthroplasty in grossly anatomic alignment. Hip X-Ray 01/27/18 0000 Signed Impressions: CONCLUSION: No lateral projection but normal alignment on AP projection. Objective Remarks GENERAL: This is a well-nourished, well-developed patient, in no apparent distress. SKIN: Warm and dry HEENT: Normocephalic. Pupils equal round and reactive. Nose without bleeding. Airway patent. NECK: Trachea midline. No JVD. Supple. CARDIOVASCULAR: Regular rate and rhythm without murmurs, gallops, or rubs. RESPIRATORY: Clear to auscultation. Breath sounds equal bilaterally. No wheezes , rales, or rhonchi. GASTROINTESTINAL: Abdomen soft, non-tender, nondistended. Bowel Sounds normoactive x4. MUSCULOSKELETAL: Extremities without clubbing, cyanosis. Left hip trace edema NEUROLOGICAL: Awake and alert. Oriented to time, place, person. No focal neuro deficit. Moves all extremities. Normal speech. Procedures Status post left hip arthroplasty A/P Problem List: (1) Peripheral neuropathy ICD Code: G62.9 - Polyneuropathy, unspecified (2) Depression ICD Code: F32.9 - Major depressive disorder, single episode, unspecified (3) Nausea after anesthesia ICD Code: T88.59XA - Other complications of anesthesia, initial encounter; R11.0 - Nausea (4) Hypothyroidism ICD Code: E03.9 - Hypothyroidism, unspecified (5) Diabetes ICD Code: E11.9 - Type 2 diabetes mellitus without complications Assessment and Plan Patient is a 72-year-old female who underwent left total hip arthroplasty due to severe osteoarthritis of her left hip. Status post left total hip arthroplasty due to severe osteoarthritis by Dr. Ochoa -Orthopedic following, weightbearing status per orthopedic surgery -Pain management with bowel -Physical therapy eval and treat Syncopal episode possibly vasovagal stimulation -Discussed extensively with patient possible vasovagal stimulation. -Monitor BP, orthostatic BP. Diabetes mellitus type 2, no long-term insulin use, diabetic neuropathy -Continue Januvia, insulin sliding scale -Monitor Accu-Cheks Neuropathy -Diabetic neuropathy -Gabapentin Hypothyroidism -Continue Synthroid Depression -Resume home medication duloxetine DVT prop Lovenox Discharge Planning Plan to [place] home when cleared by orthopedic surgeon Mik Townsend Jan 29, 2018 09:37
--- NOTE | 2018-01-29 11:36 | PD.ORT.PN ---
Subjective Post Op Day #: 2 Subjective Remarks pain tolerable. ready to go home. Objective Vitals Vital Signs Date Time Temp Pulse Resp B/P (MAP) Pulse Ox O2 Delivery O2 Flow Rate FiO2 01/29/18 08:00 97.7 94 18 170/89 (116) 96 01/29/18 07:30 Room Air 01/29/18 03:48 98.9 89 16 117/58 (77) 96 01/29/18 01:20 Nasal Cannula 2.00 01/29/18 01:20 98.5 85 16 131/59 (83) 95 01/28/18 21:27 94 01/28/18 20:50 98.4 93 16 114/54 (74) 94 01/28/18 20:30 Room Air 01/28/18 16:09 98.6 93 17 116/57 (76) 94 01/28/18 12:19 98.6 85 18 111/57 (75) 98 I/O 01/28/18 01/28/18 01/28/18 01/29/18 01/29/18 01/29/18 07:00 15:00 23:00 07:00 15:00 23:00 Intake Total 340 ml 360 ml Balance 340 ml 360 ml Intake Oral 240 ml 360 ml IV Total 100 ml # Voids 5 2 # Bowel Movements 0 Result Diagram: 01/29/18 0722 01/28/18 0812 Objective Remarks in chair, nad dressing c/d/i, mild ecchymosis neg homans nvi Assessment & Plan Ortho Post Op Day #: 2 Problem List: Assessment and Plan s/p R ALEXEY wbat ok to maintain dressing unless saturated lovenox, d/c on asa 81 d/c planning home with [facility] and pt - cleared for d/c f/up dr. gore 2 weeks [facility] Jan 29, 2018 11:36
[2018-01-29 12:00] VITALS: BP 130/61; PULSE 61; RESP 18; TEMP 97.8; O2SAT 96
== END 2018-01-29 12:40 | disposition home health service (06) | DRG 470 ==
LOC: HSDI 05:19 → EDUNIT# 07:00 → N06A 13:49
PROVIDERS: ADMIT Orthopaedic Surgery Sports Medicine; ATTEND Orthopaedic Surgery Sports Medicine
PROC: 0SRB03A Replacement of Left Hip Joint with Ceramic Synthetic Substitute, Uncemented, Open Approach (ICD-10-PCS; principal; 2018-01-27 06:48)
DX: M16.12 Unilateral primary osteoarthritis, left hip (principal); E11.42 Type 2 diabetes mellitus with diabetic polyneuropathy; F32.9 Major depressive disorder, single episode, unspecified; E03.9 Hypothyroidism, unspecified; G89.29 Other chronic pain; M25.561 Pain in right knee; M25.562 Pain in left knee; R11.2 Nausea with vomiting, unspecified; R20.0 Anesthesia of skin; Z96.641 Presence of right artificial hip joint; Z96.653 Presence of artificial knee joint, bilateral; Z88.5 Allergy status to narcotic agent; Z79.84 Long term (current) use of oral hypoglycemic drugs; Z79.82 Long term (current) use of aspirin
CPT/HCPCS: 73502; 76000; 80053; 82948; 83036; 83735; 84100; 84439; 84443; 85025; 85027; 86850; 86900; 86901; 94150; C1776; C9290; J0131; J0690; J1100; J1170; J1580; J1650; J1815; J2250; J2270; J2405; J2710; J3010; J3370; J7030; J7120